=== PATIENT | male | born 1990 | race Hispanic/Latino ===

== ENCOUNTER 2020-09-07 20:52 | Emergency (ER) | payer SELFPAY ==
[2020-09-07 21:00] VITALS: BP 134/73; PULSE 79; RESP 18; TEMP 37.1; O2SAT 97
[2020-09-07 21:28] LABS: UR Morphine/Opiate cutoff 300 Negative (Negative); Ur Creatinine Normal (Normal); Ur Specific Gravity Normal (Normal); Urine Amphetamines Negative (Negative); Urine Barbiturates Negative (Negative); Urine Benzodiazepines Negative (Negative); Urine Cocaine Negative (Negative); Urine MDMA Negative (Negative); Urine Methadone Negative (Negative); Urine Methamphetamines Negative (Negative); Urine Oxycodone Negative (Negative); Urine Phencyclidine Negative (Negative); Urine Tetrahydrocannabinol Positive (Negative); Urine Tricyclic Antidepressant Negative (Negative); Urine pH Normal (Normal)
[2020-09-07 21:43] LABS: Add Manual Diff / Slide Review NO; Basophils Absolute Auto 100 /uL (0-100); Basophils Percent Auto 0.6 % (0-2); Eosinophils Absolute Auto 900 /uL (0-450); Eosinophils Percent Auto 8.1 % (2-4); Hematocrit 38.5 % (41-53); Hemoglobin 13.4 g/dL (13.5-17.5); Lymphocytes Absolute Auto 1400 /uL (1100-4500); Lymphocytes Percent Auto 13.1 % (25-40); Mean Corpuscular HGB Conc 34.9 % (30-36); Mean Corpuscular Volume 91.7 fL (80-100); Monocytes Absolute Auto 300 /uL (0-900); Monocytes Percent Auto 2.9 % (3-14); Neutrophils Absolute Auto 8100 /uL (1500-7000); Neutrophils Percent Auto 75.3 % (50-75); Platelet Count 337 X10^3/uL (150-400); Red Cell Distribution Width 13.2 % (11.6-14.8); White Blood Cell Count 10.7 X10^3/uL (4.5-11.0)
[2020-09-07 21:52] LABS: Acetaminophen < 10 ug/mL (10-30); Alanine Aminotransferase 22 IU/L (<50); Albumin 4.4 g/dL (3.5-5.0); Albumin Globulin Ratio 1.4 (1.0-2.8); Aspartate Aminotransferase 24 IU/L (17-59); BUN Creatinine Ratio 17.1 (6-22); Bilirubin Total 0.2 mg/dL (0.2-1.3); Blood Urea Nitrogen 13 mg/dL (9-20); Calcium 9.5 mg/dL (8.4-10.2); Carbon Dioxide 27 mmol/L (22-32); Chloride 104 mmol/L (98-107); Estimated Glomerular Filt Rate > 60.0 mL/min (>60); Ethanol (ETOH) < 10 mg/dL; Globulin 3.1 g/dL (1.7-4.1); Glucose 126 mg/dL (70-100); HEMOLYSIS < 15 (0-50); Potassium 3.6 mmol/L (3.4-5.1); Salicylate < 1.0 mg/dL (<20); Sodium 139 mmol/L (137-145); Total Protein 7.5 g/dL (6.3-8.2)
[2020-09-07 21:57] LABS: Alkaline Phosphatase 51 U/L (38-126)
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
[2020-09-07 22:37] LABS: Thyroid Stimulating Hormone 0.389 uIU/mL (0.47-4.68)
[2020-09-07 22:59] LABS: Free T4, Direct Thyroxine 1.18 ng/dL (0.78-2.19)
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
--- NOTE | 2020-09-08 12:45 | PC.NURSE ---
Contacted 4 different taxi cab services to facilitate a ride to his [id number] house, all four companies declined transportation.
[2020-09-08 13:33] VITALS: BP 124/75; PULSE 81; RESP 16; O2SAT 97
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
== END 2020-09-08 13:40 | disposition home or self-care (01) ==
PROVIDERS: Emergency Medicine; Emergency Provider Emergency Medicine
DX: F41.9 Anxiety disorder, unspecified (principal)
CPT/HCPCS: 36415; 80053; 80305; 80320; 80329; 81003; 84439; 84443; 85025; 99283; G0480